=== PATIENT | female | born 1990 | race Caucasian/White ===

== ENCOUNTER 2022-11-05 17:10 | Emergency (ER) | payer BC ==
[~2022-11-05] VITALS: Ht 180.3 cm; Wt 147.2 kg
[2022-11-05] MEDS ORDERED: VALT1TAB PO (17:32)
[2022-11-05] MEDS ORDERED: ROSU5TAB5 PO (17:32)
[2022-11-05] MEDS ORDERED: ALLE24TA7 PO (17:32)
[2022-11-05] MEDS ORDERED: MONT-5 PO (17:32)
[2022-11-05] MEDS ORDERED: ALLE60TA69 PO (17:32)
[2022-11-05 18:39] LABS: BASO % 0.3 % (0.0-1.0); EOS # 0.2 10^3/uL (0.0-0.5); EOS % 2.2 % (0.0-3.0); HEMATOCRIT 40.1 % (36.0-47.0); HEMOGLOBIN 13.3 g/dl (12.0-15.5); LYMPH # 1.4 10^3/uL (1.5-5.0); LYMPH % 14.1 % (24.0-44.0); MEAN CORPUSCULAR HEMOGLOBIN 28.1 pg (27.0-33.0); MEAN CORPUSCULAR HGB CONC 33.2 g/dl (32.0-36.5); MEAN CORPUSCULAR VOLUME 84.8 fl (80.0-96.0); MONO # 0.7 10^3/uL (0.0-0.8); NEUTROPHILS # 7.5 10^3/uL (1.5-8.5); NEUTROPHILS % 75.9 % (36.0-66.0); PLATELET COUNT, AUTOMATED 333 10^3/uL (150-450); RED BLOOD COUNT 4.73 10^6/uL (4.00-5.40); WHITE BLOOD COUNT 9.9 10^3/uL (4.0-10.0)
[2022-11-05 18:59] LABS: BLOOD UREA NITROGEN 10 MG/DL (9-23); CALCIUM LEVEL 8.7 MG/DL (8.5-10.1); CARBON DIOXIDE LEVEL 28 MMOL/L (20-31); CHLORIDE LEVEL 107 MMOL/L (98-107); CREATININE FOR GFR 0.79 MG/DL (0.55-1.30); GLOMERULAR FILTRATION RATE > 60.0 (>60); GLUCOSE, FASTING 112 MG/DL (60-100); POTASSIUM SERUM 3.8 MMOL/L (3.5-5.1); SODIUM LEVEL 140 MMOL/L (136-145)
[2022-11-05 20:09] LABS: HCG, SERUM QUALITATIVE NEGATIVE (NEGATIVE)
[2022-11-05] MEDS ORDERED: ISOVUE-370 76% 100ML VIAL As Ordered ONE (20:13)
[2022-11-05] MEDS ORDERED: methylPREDNISolone 125MG 2ML VIAL IV ONE (21:55)
[2022-11-05] MEDS ORDERED: GI COCKTAIL 50ML BTL(HYOSCYAMINE/MAALOX/LIDOCAINE VISCOUS)(1:3:1) PO ONE (21:55)
[2022-11-05] MEDS ORDERED: OMEP40CA4 PO (22:04)
[2022-11-05] MEDS ORDERED: PRED20TA PO (22:04)
[2022-11-05] MEDS ORDERED: SUCR1TA PO (22:04)
[2022-11-05] MEDS ORDERED: ALBU6.7H6 INH (22:04)
[2022-11-05 22:26] VITALS: BP 141/78
== END 2022-11-05 22:32 | disposition home or self-care (01) ==
LOC: M ED 17:10
DX: R07.89 Other chest pain (principal); K80.20 Calculus of gallbladder without cholecystitis without obstruction; E78.5 Hyperlipidemia, unspecified; I25.2 Old myocardial infarction; Z82.49 Family history of ischemic heart disease and other diseases of the circulatory system; Z88.5 Allergy status to narcotic agent
CPT/HCPCS: 71045; 71275; 80048; 84484; 84703; 85025; 93005; 96374; 99284; J2930; Q9967

== ENCOUNTER → 2022-12-30 | Outpatient (CLI) | payer BC ==
[~2022-12-30] MED LIST: ALBU6.7H6 INH; ALLE24TA7 PO; ALLE60TA69 PO; MONT-5 PO; OMEP40CA4 PO; PRED20TA PO; ROSU5TAB5 PO; SUCR1TA PO; VALT1TAB PO
[2022-12-30 11:27] LABS: BASO % 0.5 % (0.0-1.0); EOS # 0.1 10^3/uL (0.0-0.5); EOS % 1.2 % (0.0-3.0); HEMATOCRIT 39.6 % (36.0-47.0); HEMOGLOBIN 12.7 g/dl (12.0-15.5); LYMPH # 2.1 10^3/uL (1.5-5.0); LYMPH % 27.9 % (24.0-44.0); MEAN CORPUSCULAR HEMOGLOBIN 27.8 pg (27.0-33.0); MEAN CORPUSCULAR HGB CONC 32.1 g/dl (32.0-36.5); MEAN CORPUSCULAR VOLUME 86.7 fl (80.0-96.0); MONO # 0.4 10^3/uL (0.0-0.8); MONO % 5.7 % (2.0-8.0); NEUTROPHILS # 4.9 10^3/uL (1.5-8.5); NEUTROPHILS % 64.4 % (36.0-66.0); PLATELET COUNT, AUTOMATED 342 10^3/uL (150-450); RED BLOOD COUNT 4.57 10^6/uL (4.00-5.40); WHITE BLOOD COUNT 7.6 10^3/uL (4.0-10.0)
[2022-12-30 11:38] LABS: ERYTHROCYTE SEDIMENTATION RATE 39 mm/hr (0-20)
[2022-12-30 11:54] LABS: ALBUMIN 3.9 G/DL (3.2-5.2); ALKALINE PHOSPHATASE 92 U/L (46-116); ALT/SGPT 42 U/L (7.0-40); AST/SGOT 26 U/L (<34); BILIRUBIN,TOTAL 0.6 MG/DL (0.3-1.2); BLOOD UREA NITROGEN 14 MG/DL (9-23); CALCIUM LEVEL 8.7 MG/DL (8.5-10.1); CARBON DIOXIDE LEVEL 27 MMOL/L (20-31); CHLORIDE LEVEL 106 MMOL/L (98-107); CREATININE FOR GFR 0.89 MG/DL (0.55-1.30); GLOMERULAR FILTRATION RATE > 60.0 (>60); GLUCOSE, FASTING 86 MG/DL (60-100); POTASSIUM SERUM 4.2 MMOL/L (3.5-5.1); SODIUM LEVEL 139 MMOL/L (136-145); THYROXINE (T4) 5.4 UG/DL (4.5-10.9); TOTAL PROTEIN 6.7 G/DL (5.7-8.2)
[2022-12-30 11:55] LABS: COMPLEMENT C3 180.9 MG/DL (84.0-160.0); COMPLEMENT C4 30.1 MG/DL (12-36); RHEUMATOID FACTOR QUANT < 3.5 IU/ML (<14); THYROID STIMULATING HORMONE 1.374 uIU/ML (0.55-4.78)
[2022-12-30 11:57] LABS: THYROID PEROXIDASE ANTIBODY 29 U/ML (<60.0)
== END ==
LOC: M LAB 09:55
PROVIDERS: ATTEND Allergy & Immunology Allergy
DX: L50.1 Idiopathic urticaria (principal); T78.2XXA Anaphylactic shock, unspecified, initial encounter

== ENCOUNTER → 2023-01-06 | Outpatient (CLI) | payer BC ==
[2023-01-10 23:07] LABS: 5HIAA 24HR URINE 3.2 mg/24 hr (0.0-14.9); 5HIAA TOTAL URINE 1.7 mg/L (Undefined)
== END ==
LOC: M LAB 10:20
PROVIDERS: ATTEND Allergy & Immunology Allergy
DX: L50.1 Idiopathic urticaria (principal)

== ENCOUNTER 2023-02-14 14:42 | Emergency (ER) | payer BC ==
[~2023-02-14] VITALS: Ht 180.3 cm; Wt 159.1 kg
[2023-02-14 20:12] VITALS: TEMP 99.3
[2023-02-15] MEDS ORDERED: diphenhydrAMINE 50MG/ML VIAL IV STA (01:53)
[2023-02-15] MEDS ORDERED: METOCLOPRAMIDE INJ 10MG/2ML VIAL IV ONE (01:55)
[2023-02-15] MEDS ORDERED: dexAMETHasone 20MG/5ML VIAL IV ONE (01:55)
[2023-02-15] MEDS ORDERED: NS 1,000 ML IV ONE (01:55)
[2023-02-15] MEDS ORDERED: PROCHLORPERAZINE 10MG 2ML VIAL IV ONE (03:45)
[2023-02-15] MEDS ORDERED: KETOROLAC 30 MG/ML 1ML VIAL IM ONE (03:45)
[2023-02-15 04:42] LABS: BASO % 0.3 % (0.0-1.0); EOS # 0.1 10^3/uL (0.0-0.5); EOS % 0.7 % (0.0-3.0); HEMATOCRIT 39.6 % (36.0-47.0); HEMOGLOBIN 12.7 g/dl (12.0-15.5); LYMPH # 1.3 10^3/uL (1.5-5.0); LYMPH % 13.4 % (24.0-44.0); MEAN CORPUSCULAR HEMOGLOBIN 27.6 pg (27.0-33.0); MEAN CORPUSCULAR HGB CONC 32.1 g/dl (32.0-36.5); MEAN CORPUSCULAR VOLUME 86.1 fl (80.0-96.0); MONO # 0.3 10^3/uL (0.0-0.8); MONO % 3.2 % (2.0-8.0); NEUTROPHILS # 7.8 10^3/uL (1.5-8.5); NEUTROPHILS % 82.1 % (36.0-66.0); PLATELET COUNT, AUTOMATED 301 10^3/uL (150-450); WHITE BLOOD COUNT 9.5 10^3/uL (4.0-10.0)
[2023-02-15 05:05] LABS: ALBUMIN 3.5 G/DL (3.2-5.2); ALKALINE PHOSPHATASE 92 U/L (46-116); ALT/SGPT 49 U/L (7.0-40); AST/SGOT 23 U/L (<34); BILIRUBIN,TOTAL 0.4 MG/DL (0.3-1.2); BLOOD UREA NITROGEN 13 MG/DL (9-23); CALCIUM LEVEL 8.2 MG/DL (8.5-10.1); CARBON DIOXIDE LEVEL 25 MMOL/L (20-31); CHLORIDE LEVEL 108 MMOL/L (98-107); CREATININE FOR GFR 0.82 MG/DL (0.55-1.30); GLOMERULAR FILTRATION RATE > 60.0 (>60); GLUCOSE, FASTING 114 MG/DL (60-100); MAGNESIUM LEVEL 1.8 MG/DL (1.8-2.4); POTASSIUM SERUM 4.2 MMOL/L (3.5-5.1); SODIUM LEVEL 141 MMOL/L (136-145); TOTAL PROTEIN 6.5 G/DL (5.7-8.2)
[2023-02-15] MEDS ORDERED: diazePAM 10MG/2ML SYRINGE IV ONE (05:30)
[2023-02-15] MEDS ORDERED: FIOR1CAP PO (06:17)
[2023-02-15 06:29] VITALS: BP 110/78; O2SAT 98
== END 2023-02-15 06:31 | disposition home or self-care (01) ==
LOC: M ED 14:42
DX: G43.909 Migraine, unspecified, not intractable, without status migrainosus (principal); I25.2 Old myocardial infarction; Z79.52 Long term (current) use of systemic steroids; Z79.899 Other long term (current) drug therapy
CPT/HCPCS: 70450; 80053; 83605; 83735; 85025; 96372; 96374; 96375; 99284; J0780; J1100; J1200; J1885; J2765; J3360

== ENCOUNTER → 2023-03-09 | Outpatient (CLI) | payer BC, MEDICAID, OTHER, SELFPAY ==
[~2023-03-09] MED LIST changes: +CELE0.09 PO; +CYCL100C5 PO; +DOXE25CA PO; +EPIN0.1510 IJ; +FAMO40TA3 PO; +FIOR1CAP PO; +HYDR50TA70 PO; +XOLA150I SC; +ZYRT10TA12 PO; +iud
[2023-03-14 15:09] LABS: TRYPTASE 10.7 ug/L (2.2-13.2)
== END ==
LOC: M LAB 11:09
PROVIDERS: ATTEND Allergy & Immunology Allergy
DX: L50.1 Idiopathic urticaria (principal); T78.2XXD Anaphylactic shock, unspecified, subsequent encounter

== ENCOUNTER 2023-05-30 12:34 | Day surgery (SDC) | payer OTHER ==
[~2023-05-30] VITALS: Ht 180.3 cm; Wt 145.9 kg
[~2023-05-30 12:34] MED LIST changes: +NS 1,000 ML IV ONE
[2023-05-30] MEDS ORDERED: fentaNYL 100 MCG/2 ML INJECTION As Ordered ONE (14:25)
[2023-05-30] MEDS ORDERED: LIDOCAINE 2% 100MG/5ML SDV (FOR ANES.) As Ordered ONE (14:26)
[2023-05-30] MEDS ORDERED: propofoL 200 MG/20 ML VIAL As Ordered ONE (14:27)
[2023-05-30 15:30] VITALS: TEMP 96.9
[2023-05-30 15:55] VITALS: BP 154/94; O2SAT 97
== END 2023-05-30 16:03 | disposition home or self-care (01) ==
LOC: M OPP 12:34
PROVIDERS: ATTEND Internal Medicine Gastroenterology
DX: K21.00 Gastro-esophageal reflux disease with esophagitis, without bleeding (principal); K29.70 Gastritis, unspecified, without bleeding; R11.2 Nausea with vomiting, unspecified; Z86.74 Personal history of sudden cardiac arrest; Z79.02 Long term (current) use of antithrombotics/antiplatelets; Z79.1 Long term (current) use of non-steroidal anti-inflammatories (NSAID); Z79.51 Long term (current) use of inhaled steroids; Z79.620 Long term (current) use of immunosuppressive biologic; Z79.811 Long term (current) use of aromatase inhibitors; Z79.899 Other long term (current) drug therapy; Z88.5 Allergy status to narcotic agent
CPT/HCPCS: 43239; 88305; J3010

== ENCOUNTER → 2024-08-23 | Outpatient (REF) | payer OTHER, MEDICAID ==
[~2024-08-23] MED LIST changes: -NS 1,000 ML IV ONE; +ROSU5TAB49 PO; -ROSU5TAB5 PO
== END ==
LOC: M LAB REF 12:16
PROVIDERS: ATTEND Physician Assistant Medical
DX: R19.7 Diarrhea, unspecified (principal)

== ENCOUNTER → 2024-09-13 | Outpatient (CLI) | payer OTHER ==
[2024-09-13 12:19] LABS: BASO % 0.2 % (0.0-1.0); EOS % 0.1 % (0.0-3.0); HEMATOCRIT 42.3 % (36.0-47.0); HEMOGLOBIN 13.9 g/dl (12.0-15.5); LYMPH # 0.9 10^3/uL (1.5-5.0); LYMPH % 4.4 % (24.0-44.0); MEAN CORPUSCULAR HEMOGLOBIN 27.6 pg (27.0-33.0); MEAN CORPUSCULAR HGB CONC 32.9 g/dl (32.0-36.5); MEAN CORPUSCULAR VOLUME 83.9 fl (80.0-96.0); MONO # 0.7 10^3/uL (0.0-0.8); MONO % 3.4 % (2.0-8.0); NEUTROPHILS # 17.7 10^3/uL (1.5-8.5); NEUTROPHILS % 91.4 % (36.0-66.0); PLATELET COUNT, AUTOMATED 399 10^3/uL (150-450); RED BLOOD COUNT 5.04 10^6/uL (4.00-5.40); WHITE BLOOD COUNT 19.4 10^3/uL (4.0-10.0)
[2024-09-13 12:27] LABS: ERYTHROCYTE SEDIMENTATION RATE 41 mm/hr (0-20)
[2024-09-13 12:47] LABS: ALBUMIN 4.2 G/DL (3.2-5.2); ALKALINE PHOSPHATASE 123 U/L (35-104); ALT/SGPT 44 U/L (7.0-40); AST/SGOT 25 U/L (<34); BILIRUBIN,TOTAL 0.6 MG/DL (0.3-1.2); BLOOD UREA NITROGEN 14 MG/DL (9-23); CALCIUM LEVEL 10.4 MG/DL (8.5-10.1); CARBON DIOXIDE LEVEL 22 MMOL/L (20-31); CHLORIDE LEVEL 105 MMOL/L (98-107); CREATININE FOR GFR 0.98 MG/DL (0.55-1.30); GLOMERULAR FILTRATION RATE > 60.0 (>60); GLUCOSE, FASTING 106 MG/DL (60-100); POTASSIUM SERUM 4.7 MMOL/L (3.5-5.1); SODIUM LEVEL 141 MMOL/L (136-145); TOTAL PROTEIN 7.9 G/DL (5.7-8.2)
[2024-09-13 12:48] LABS: THYROID STIMULATING HORMONE 0.462 uIU/ML (0.55-4.78)
[2024-09-13 15:01] LABS: RHEUMATOID FACTOR QUANT < 3.5 IU/ML (<14)
[2024-09-16 17:26] LABS: ANA SCREEN, IFA NEGATIVE (NEGATIVE)
== END ==
LOC: M LAB 09:38
PROVIDERS: ATTEND Psychiatry & Neurology Neurology
DX: R51.9 Headache, unspecified (principal)

== ENCOUNTER → 2024-12-10 | Outpatient (CLI) | payer OTHER | LOC: M LAB 12:00 | PROVIDERS: ATTEND Nurse Practitioner Family | DX: L50.1 Idiopathic urticaria (principal) ==